=== PATIENT | female | born 1995 | race Two or more races ===

== ENCOUNTER 2018-09-09 16:50 | Observation (INO) | payer OTHER ==
[~2018-09-09] VITALS: Ht 160 cm; Wt 59.0 kg
--- OUTSIDE RECORDS SUMMARY | 2018-09-09 16:52 | XMS REPORT | Summary of Care ---
Author Author DEVIN Vallecillo, [facility] [place] Unknown Address Unknown Phone Unavailable Care Team Providers Care Bobbin Sorter Name Role Phone R.N. Unavailable Unavailable Functional Status Name Dates Details Functional status health issues are not documented Status: Name Dates Details Cognitive status health issues are not documented Status: Problems Name Dates Details Active medical history not documented Status: Medications Name Dates Details Medications not documented Allergies and Adverse Reactions Name Dates Details Allergy history not documented Status: Procedures Procedure Dates Details Procedures not documented Immunization Name Dates Details Immunizations not documented Social History Name Dates Details Unknown if ever smoked Vital Signs Date Test Result Details No Known Vitals to report Results Date Description Value Details [id number] [U] XRAY KNEE 4 OR MORE VWS LEFT [id number] XR KNEE 4 OR MORE VWS LEFT EXAM: XR KNEE 4 OR MORE VWS LEFT DATE: 10/16/2017 4:06 PM POULTRY HANGER INDICATION: left knee pain COMPARISON: None available TECHNIQUE: AP weightbearing, PA weightbearing, and sunrise view of both knees with lateral view of the left knee DISCUSSION: No acute fracture or malalignment is identified. Mild narrowing of the left lateral patellofemoral compartment. No subchondral cyst or osteophytes. Left ACL reconstruction without hardware complication identified. There is no excessive joint fluid. No soft tissue abnormality is identified. IMPRESSION:1. Left ACL reconstruction without complication identified.2. Mild narrowing of the left lateral patellofemoral compartment. 10/17/2017 2:51 PM POULTRY HANGER Clayton Zelaya Plan of Care Name Dates Details Planned Observations Planned Goals not documented Instructions Name Dates Details Instructions not documented Encounters Appointment; JESIKA BELTRAN M.D. Encounter Diagnosis: Problem not documented On: 16-Oct-2017 15:30
--- NOTE | 2018-09-09 17:06 | NUR ---
Room is ready for SI pt. All ligature hazards are removed. Cart is placed in the hallway. Door is open for visualization from nursing station. Manager Actuarial notified of need for a sitter in room 10.
--- NOTE | 2018-09-09 17:10 | NUR ---
LATE ENTRY: PATIENT AMBULATORY TO ER ROOM 10 WITH RN. ALL PATIENT BELONGINGS PLACED IN BELONGING BAG, CHECKED FOR HARMFUL OBJECTS. PATIENT REMOVED CLOTHINGS AND CHECKED FOR HARMFUL OBJECTS AND PUT ON PAPER SCRUBS. NECKLACE REMOVED AND PLACED IN BELONGING BAG. ALL CORDS AND EQUIPMENT HAVE BEEN REMOVED FROM ROOM. PATIENT PLACED ON SUICIDE PRECAUTIONS, 1 TO 1. EDUCATED PATIENT ON THE CURRENT PLAN OF CARE, AND TO NOTIFY NURSE OF SUICIDAL OR HOMICIDAL THOUGHTS, ANY QUESTIONS, CONCERNS OR NEEDS, VERBALIZED UNDERSTANDING. PATIENT IN ROOM VISIBLE FROM NURSING STATION WITH DOOR OPEN.
--- NOTE | 2018-09-09 17:25 | NUR ---
Yahir arrived at bedside.
[2018-09-09 17:50] LABS: BASOPHILS % 0.3 % (0.0-1.0); EOSINOPHILS # (AUTO) 0.1 (0.0-0.4); EOSINOPHILS % 1.4 % (0.0-6.0); HEMATOCRIT 38.3 % (34.2-44.1); HEMOGLOBIN 12.4 g/dL (12.0-16.0); LYMPHOCYTES # (AUTO) 1.2 (1.0-3.2); LYMPHOCYTES % 18.5 % (18.0-39.1); MEAN CORPUSCULAR HEMOGLOBIN 29.2 pg (28-32); MEAN CORPUSCULAR HGB CONC 32.4 g/dL (31-35); MEAN CORPUSCULAR VOLUME 90.1 fL (81-99); MONOCYTES # (AUTO) 0.5 (0.2-0.8); MONOCYTES % 7.7 % (4.4-11.3); NEUTROPHILS # (AUTO) 4.6 (2.1-6.9); NEUTROPHILS % 71.8 % (38.7-80.0); PLATELET COUNT 190 x10e3/uL (140-360); RED BLOOD COUNT 4.25 x10e6/uL (3.6-5.1); RED CELL DISTRIBUTION WIDTH 12.6 % (11.7-14.4)
--- NOTE | 2018-09-09 17:55 | NUR ---
Poison Control Notification Poison Engineering Technician Parking.: Angela Case# [id number] Charcoal is not recommended due to reported time from ingestion. Recommended Actions: Symptomatic Support Repeat Tylenol and Salycilate levels at 1945 If QTC> 470 recommend 1gm Mag over 1 hour and recheck EKG If QRS> 120 recommend 1 Meq/kg Bicarb IVP and recheck EKG For agitation give Benzos
[2018-09-09 18:07] LABS: ALANINE AMINOTRANSFERASE 20 IU/L (0-55); ALBUMIN 3.7 g/dL (3.5-5.0); ALBUMIN/GLOBULIN RATIO 1.1 (0.8-2.0); ALKALINE PHOSPHATASE 59 IU/L (40-150); ANION GAP 13.8 mmol/L (8-16); BLOOD UREA NITROGEN 10 mg/dL (7-26); BUN/CREATININE RATIO 13 (6-25); CALCIUM 8.9 mg/dL (8.4-10.2); CARBON DIOXIDE 23 mmol/L (22-29); CHLORIDE 109 mmol/L (98-107); CREATININE, SERUM 0.77 mg/dL (0.57-1.11); EST GLOMERULAR FILTRATION RATE > 60 ML/MIN (60-); GLUCOSE 85 mg/dL (74-118); POTASSIUM 3.8 mmol/L (3.5-5.1); SODIUM 142 mmol/L (136-145)
--- NOTE | 2018-09-09 18:42 | NUR ---
Family at the bedside to get keys to pt's appt. She asked them to go get her medications bottles that she took prior to coming to ER. Pt allowed disclosure of information to the grandparents at the bedside. Witnessed by Barbara Lopez RN.
[2018-09-09 19:01] LABS: ACETAMINOPHEN < 3 ug/mL (10-30); SALICYLATE < 5.0 mg/dL (0-30)
[2018-09-09] MEDS ORDERED: LORAZEPAM0.5 MG PO (19:36)
[2018-09-09] MEDS ORDERED: OMEPRAZOLE40 MG PO (19:36)
[2018-09-09] MEDS ORDERED: ZOLOFT50 MG PO (19:36)
[2018-09-09 19:57] LABS: BILIRUBIN,URINE NEGATIVE (NEGATIVE); CLARITY,URINE SL CLOUDY (CLEAR); COLOR,URINE YELLOW (YELLOW); KETONES,URINE NEGATIVE (NEGATIVE); LEUKOCYTE ESTERASE ,URINE NEGATIVE (NEGATIVE); NITRITE,URINE NEGATIVE (NEGATIVE); PROTEIN,URINE DIPSTICK NEGATIVE (NEGATIVE); URINE UROBILINOGEN 0.2 mg/dL (0.2 - 1)
[2018-09-09 20:02] LABS: AMPHETAMINES SCREEN,URINE NEGATIVE (NEGATIVE); BENZODIAZEPINES SCREEN,URINE POSITIVE (NEGATIVE); PHENCYCLIDINE SCREEN,URINE NEGATIVE (NEGATIVE)
[2018-09-09 20:04] VITALS: BP 101/58
[2018-09-09 20:10] LABS: BACTERIA,URINE MODERATE /HPF; EPITHELIAL CELLS,URINE MODERATE /LPF; RBC,URINE 21-50 /HPF (0-5); TRANSITIONAL EPI CELLS,URINE FEW
--- NOTE | 2018-09-09 20:10 | NUR ---
received pt from ER to room 214, awake and alert, resp even and unlabored, able to verbalize needs, flat affect, tele box #04 on pt and pt running ST, sitter at bedside, family at bedside, pt in paper gown with 20 G IV to right AC patent and intact, bed in lowest and locked position, pt NPO, all items and cords removed from room
[2018-09-09 20:15] VITALS: BP 101/58
[2018-09-09 20:30] LABS: ACETAMINOPHEN < 3 ug/mL (10-30); SALICYLATE < 5.0 mg/dL (0-30)
--- NOTE | 2018-09-09 21:15 | NUR ---
pt belongings given to family, pt drowsy and eyes slightly puffy, resp even and unlabored, Sinus tach at 107, speech clear, sitter and family at bedside
--- NOTE | 2018-09-09 21:41 | NUR ---
Poison Control Center called to follow up on pt, no further recommendations at this time
--- NOTE | 2018-09-09 22:00 | NUR ---
Poison Control Center policy services representative Alessia notified of pt QTC OF 370, AND QRS of 100, no further recommendations
[2018-09-10] VITALS: BP 113/64
[2018-09-10 04:00] VITALS: BP 118/62
[2018-09-10 07:48] VITALS: BP 117/70
[2018-09-10 09:00] VITALS: BP 117/70
--- NOTE | 2018-09-10 10:10 | NUR ---
Visit made by the Spiritual Care Department Pastoral Visitor, Amaury Gregory. PV provided pastoral presence, hospitality, and supportive listening. PV facilitated conversation w/ pt about stressors in pt's life including work and relationships. Pastoral Visitor informed pt/family of the scope of Performance Instructor Services and availability. JEFERSON REY Vehicle Cost Engineer Spiritual Care Department O: [phone] Pager: [phone] ([phone] number calling from)
[2018-09-10 10:44] VITALS: BP 110/53
--- NOTE | 2018-09-10 12:19 | NUR ---
Patient states she is "having nightmares and hallucinations." Paged Dr. Michaels at this time. Awaiting return call.
--- NOTE | 2018-09-10 12:59 | NUR ---
Dr. Diallo here to see the patient at this time.
--- NOTE | 2018-09-10 13:08 | NUR ---
Patient gave verbal consent for Dr. Diallo to speak with either of her parents. As requested by Dr. Diallo, contact information was sent to him. FRANCHESCA Keating witnessed patient's verbal consent.
[2018-09-10] MEDS: SODIUM CHLORIDE 0.9% 1000ML 1,000 ML IV SCH (14:42)
[2018-09-10 20:00] VITALS: BP 106/64
[2018-09-11] MEDS: SODIUM CHLORIDE 0.9% 1000ML 1,000 ML IV SCH (02:00)
[2018-09-11 06:09] VITALS: BP 95/50
[2018-09-11 07:20] VITALS: BP 95/50
[2018-09-11 07:52] VITALS: BP 103/60
--- NOTE | 2018-09-11 10:21 | Consultation ---
DATE OF CONSULTATION: September 10, 2018 PSYCHIATRIC CONSULTATION REASON FOR CONSULTATION: To evaluate the patient's suicidal ideation. HISTORY OF PRESENT ILLNESS: The patient is a 23-year-old [place] female admitted to the hospital for depression, suicidal ideation and suicide attempt. At the time of evaluation, the patient was found to be in the room. She is alert, awake and oriented to situation. The patient admits to overdose and was drinking alcohol in order to kill herself due to depression and work-related issues. 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 She also reports being involved in a relationship with a man. She admits to feeling hopeless. She denies any suicidal ideation at this time. She denies any hallucinations. She admits to having issue with sleep but denies any appetite problem. She agrees to go to inpatient psychiatry. PAST PSYCHIATRIC HISTORY: The patient reports a history of depression, anxiety and PTSD. She attempted suicide once in the past. She reports alcohol use every day that is about 3 drinks. She admits to taking marijuana. FAMILY HISTORY: She reports depression on her mother's side. SOCIAL HISTORY: The patient lives with her parents. MENTAL STATUS EXAMINATION: The patient is a young [place] female. She is alert, awake and oriented to situation. Her mood is depressed. She denies any suicidal or homicidal ideation. She denies any hallucinations. Thought process is concrete. She does not elicit paranoia or delusional thinking. Affect is congruent with mood. Psychomotor state is passive. Insight and judgment are fair. Memory appears to be grossly intact. CURRENT MEDICATIONS: Sodium chloride. LABS: WBC 6.47, RBC 4.25, hemoglobin 12.4, hematocrit 38.3, platelets 190. Sodium 142, potassium 3.8, chloride 109, CO2 23, BUN 10, creatinine 0.77, AST 23, ALT 20. TOXICOLOGY: Acetaminophen is less than 3 on September 09. Positive for benzo. Positive for alcohol level on the which is 86.5. ASSESSMENT 1. Major depressive disorder, recurrent, severe. 2. Alcohol abuse. 3. Marijuana abuse. PLAN 1. Transfer to inpatient psychiatry once she is medically cleared. 2. Recommend total abstinence from alcohol and drugs. 3. No meds at this time due to recent overdose. 4. Supportive therapy. Dictated by: NESHA Jara Job#: [id number] MH
[2018-09-11 11:12] VITALS: BP 102/61
[2018-09-11 12:06] VITALS: BP 102/61
--- NOTE | 2018-09-11 13:20 | NUR ---
Dr. Norton is here making rounds, he is covering for Dr. Michaels. He said patient is medically clear and OK to continue with transfer to psych facility.
--- NOTE | 2018-09-11 15:25 | NUR ---
SPOKE WITH PATIENT AND MOTHER AND FATHER PT IS GOING VOLUNTARILY TO [facility] UNDER DR OKSANA LEMOS. [id number] [facility] [id number] . PT CAN GO WHEELCHAIR TRANSPORT. FATHER RALPH THORPE [phone] IS AWARE AND NOTIFIED OF PROCESS. GAVE RESOURCES FOR IN/OUT PATIENT DRUG AND COUNSELING PROGRAMS IN AREA AND THROUGH THE [facility]. PT IS AGREEABLE TO THIS TRANSFER, SIGNED TRANSFER FORM FOR TRANSPORT. FATHERS MAIN CONCERN IS THAT THE INSURANCE PAY FOR THE SERVICES.
[2018-09-11 15:31] VITALS: BP 105/57
--- NOTE | 2018-09-11 15:50 | NUR ---
Nurse to nurse report given via telephone at [facility].
--- NOTE | 2018-09-12 01:39 | NUR ---
discharge summary [id number]
--- NOTE | 2018-09-12 06:49 | Discharge Summary ---
This is coverage for Dr. Wilmer Michaels. PRIMARY DIAGNOSIS: Suicidal ideation/suicide attempt. SECONDARY DIAGNOSES 1. Major depressive disorder, recurrent and severe. 2. Alcohol abuse. 3. Marijuana abuse. PRIMARY CARE PROVIDER: Uche Pack. HOSPITAL COURSE: Ms. Pineda was admitted to [facility] on September 09, 2018. Patient was drinking alcohol to try to kill herself. She presented to the hospital. After hospitalization and washout, she was allowed for discharge on September 11, 2018 to [facility]. ACTIVITY AT DISCHARGE: As tolerated. DIET AT DISCHARGE: Regular. DISCHARGE MEDICATIONS: See medication administration/medication reconciliation forms for details. Greater than 30 minutes in direct care today. Job#: [id number] BRENDAN
--- NOTE | 2018-09-16 12:32 | Progress Note ---
DATE: September 11, 2018 PSYCHIATRIC PROGRESS NOTE The patient is in the room with her cousin. She is alert, awake and oriented to situation. The sitter is in the room. The patient states she is feeling less depressed. She denies any suicidal ideation. She denies any problems with sleep or appetite. She denies any hallucinations but reports some blurred vision. She denies any side effects to the medications. She agrees to go to inpatient psychiatry. ASSESSMENT: Major depressive disorder. PLAN 1. No psychotropic medication at this time. 2. Transfer to inpatient psychiatry. Dictated by: NESHA Jara Job#: [id number]
== END 2018-09-11 19:24 ==
LOC: ER 16:50 → ERHOLD 18:43 → MED/SURG2 20:05
PROVIDERS: ADMIT Internal Medicine; ATTEND Internal Medicine
DX: T42.4X2A Poisoning by benzodiazepines, intentional self-harm, initial encounter (principal); T43.222A Poisoning by selective serotonin reuptake inhibitors, intentional self-harm, initial encounter; Z83.3 Family history of diabetes mellitus; F12.10 Cannabis abuse, uncomplicated; F10.10 Alcohol abuse, uncomplicated; F33.2 Major depressive disorder, recurrent severe without psychotic features
CPT/HCPCS: 36415; 80053; 80307; 80320; 80329 ×2; 81001; 84702; 85025; 93005; 99284; G0378 ×3; J7030 ×2